=== PATIENT | female | born 1960 | race Caucasian/White ===

== ENCOUNTER 2018-11-20 14:55 | Inpatient (IN) | payer OTHER ==
[~2018-11-20] VITALS: Ht 180.3 cm; Wt 119.8 kg
--- NOTE | 2018-11-20 15:17 | NUR ---
RT PAGED FOR ABG. PT PLACED ON FULL CM SINUS TACH PT ON RA O2 SAT AT 81% LUNGS CTA SHALLOW LABORED BREATHING. PT AAOX4 GOWNED LAB AT BEDSIDE FOR BLOOD DRAW. VICENTA EMT AT BEDSIDE FOR EKG. AWAITING MD MENDEZ AND ORDERS WILL MONITOR
--- NOTE | 2018-11-20 15:17 | NUR ---
PT PRESENTS TO ED WITH C/O SOB HX OF COPD WORSENING SOB X 2 WKS PT AAOX4 RESP EVEN LABORED AND SHALLOW CRACKLES AND DIMINISHED LUNG SOUNDS THROUGHOUT PT ON RA FOR ABG BLOOD DRAW. PT GOWNED PLACED ON FULL CM. AWAITING MD MENDEZ AND ORDERS. WILL MONITOR
[2018-11-20 15:36] LABS: CARBON DIOXIDE 38.4 mmol/L (21-32); CREATININE SERUM 1.1 mg/dL (0.6-1.0); POTASSIUM SERUM 4.1 mmol/L (3.5-5.1)
[2018-11-20 15:39] LABS: BASOPHIL % 0.6 % (0-2); PLATELET COUNT 202 x10^3mcL (130-400)
[2018-11-20 15:41] LABS: BILIRUBIN TOTAL 0.9 mg/dL (0.20-1.00); RED CELL DISTRIBUTION WIDTH 17.6 % (11.5-14.5); TOTAL PROTEIN, SERUM 6.6 g/dL (6.4-8.2)
[2018-11-20 15:43] LABS: ALBUMIN 3.1 g/dL (3.4-5.0)
--- NOTE | 2018-11-20 15:43 | NUR ---
ABG IN PROGRESS
--- NOTE | 2018-11-20 15:48 | NUR ---
DR ELLSWORTH AT BEDSIDE FOR MSE
--- NOTE | 2018-11-20 16:05 | NUR ---
PLACED PATIENT ONTO BIPAP POST ABG RESULTS. SETTINGS GIVEN BY : 03/12 RATE 16 FIO2 32%. PATIENT CONFIRMED COMFORT ON MASK. HR 104 SPO2 94.
--- NOTE | 2018-11-20 16:10 | NUR ---
RT AT BEDSIDE WITH BI-PAP ORDERED BY WES ROWE.
--- NOTE | 2018-11-20 16:13 | NUR ---
RT AT BEDSIDE FOR BREATHING TX
--- NOTE | 2018-11-20 16:33 | NUR ---
BREATHING TX COMPLETED
--- NOTE | 2018-11-20 16:52 | NUR ---
PT MEDICATED PER MD ORDERS SEE EMAR. RT PAGED FOR SECOND BREATHING TX. PT ON FULL CM VSS AT THIS TIME. PT REMAINS ON BI-PAP WILL MONITOR
--- NOTE | 2018-11-20 16:55 | NUR ---
RT AT BEDSIDE FOR BREATHING TX
--- NOTE | 2018-11-20 17:48 | NUR ---
PT INTUBATED AT THIS TIME BY DR ELLSWORTH
--- NOTE | 2018-11-20 17:56 | NUR ---
PORTABLE CXR POST INTUBATION COMPLETED
--- NOTE | 2018-11-20 18:00 | NUR ---
ORDERED GIVEN TO EXTRACT ET TUBE FROM 25CM TO 23CM BY POST XRAY.
--- NOTE | 2018-11-20 18:41 | NUR ---
LAB AT BEDSIDE FOR BLOOD CULTURE BLOOD DRAW
[2018-11-20 19:12] LABS: microscopic required? YES; urine erythrocyte TRACE (NEGATIVE)
--- NOTE | 2018-11-20 19:15 | NUR ---
FENTANYL DRIP STARTED AT THIS TIME PER MD ORDERS SEE EMAR
--- NOTE | 2018-11-20 19:28 | NUR ---
REPORT GIVEN TO NBA SORENSON RESUMING CARE OF PT AT THIS TIME
--- NOTE | 2018-11-20 19:40 | NUR ---
PATIENT WENT FOR CT SCAN
--- NOTE | 2018-11-20 20:10 | NUR ---
PATIENT RETURN FROM CT SCAN , BLOOD PRESSURE IS LOW 84/55
--- NOTE | 2018-11-20 20:30 | NUR ---
POST INTUBATION BLOOS GAS WAS DONE. VENT SETTING ADJUSTED. SAME IS KATHARINE 450TV, 80% DOWN FROM 100% A/C 20. PEEP 5. SATURATION 100%
--- NOTE | 2018-11-20 20:45 | NUR ---
LEVOPHED STARTED ORDERED @ 2MCG/MIN
--- NOTE | 2018-11-20 21:46 | NUR ---
RECEIVED REPORT FROM NBA SORENSON IN ED. AWAITING PT TRANSFER TO ICU.
--- NOTE | 2018-11-20 22:00 | NUR ---
REPORT WAS GIVEN TO DAVID IN ICU. PATIENT WILL BE TRANSPORTED TO ICU # 5 AFTER CVP LINE INSERTION.
[2018-11-20 22:03] VITALS: BP 105/75
--- NOTE | 2018-11-20 22:20 | NUR ---
AT THE BEDSIDE TO PLACE CENTRAL LINE. FAMILY WAS NOT AVAILABE. MD SIGN CONSENT.
--- NOTE | 2018-11-20 23:05 | NUR ---
MD IS STILL TRYING TO PLACE CVP LINE. SATURATION DOWN TO 89% . RESPIRATORY CALL TO THE BEDSIDE.
[2018-11-21] VITALS (19 sets, daily range): BP systolic 88–115; BP diastolic 52–79
--- NOTE | 2018-11-21 | NUR ---
PATIENT GOT VERY AGITATED WHILE FAMILY WERE VISITING . DRIPOVAN DRIP RATE INCREASE TO 15 MCG, PATIENT CALM DOWN . MOVED TO ICU 5 AFTER THE NURSE WAS UPDATED.
--- NOTE | 2018-11-21 00:05 | NUR ---
POST PROCEDURE XRAY WAS DONE. MD LUNSFORD LINE USE.
--- NOTE | 2018-11-21 00:11 | NUR ---
PT BROUGHT IN BY WOOD FROM ED ACCOMPANIED BY RN AND EMT AND TRANSFERRED TO ICU BED. HOOKED UP TO INFORMATION ASSISTANT AND CONTINUOUS PULSE OX MONITORING. VS UPON ADMISSION: T 98.0, HR 86, BP 92/60(71), O2SAT 100%. PT INTUBATED AND SEDATED ON FENTANYL 1MCG/KG/HR AND PROPOFOL AT 15 MCG/KG/MIN. 7.5 ETT AT 23LL INTACT AND SECURED. PT RESPONSIVE TO PAINFUL STIMULI. PUPILS 3MM SLUGGISH. OGT IN PLACE AND SECURED TO ETT. PT ON VENT VCV-AC MODE WITH SETTINGS OF VT 450, R 18, FIO2 80%, PEEP 6. BREATHING E/U. LUNG SOUNDS DIMINIASHED BILATERALLY. S1S2 AUSCULTATED WITH NO MURMURS NOTED. LEVOPHED GTT AT 12MCG/MIN. NO DISCHARGE, REDNESS, OR SWELLING TO EENT. RIJ CVC TRIPLE LUMEN IN PLACE, WNL, DRESSING CDI. SKIN HAS REDNESS TO LOWER ABDOMINAL FOLD AND L INGUINAL FOLD. SCATTERED SCABS TO L HEARN NOTED. ABDOMEN ROUND, SOFT. NO BM AT THIS TIME. NO N/V NOTED. WALLACE CATHTER IN PLACE DRAINING VIA GRAVITY YELLOW URINE. BED IN LOW POSITION. CALL LIGHT WITHIN REACH. WILL CONTINUE TO MONITOR.
--- NOTE | 2018-11-21 00:50 | NUR ---
LEVOPHED TITRATED FROM 12MCG/MIN TO 10MCG/MIN. BP 104/69. MAP 81.
--- NOTE | 2018-11-21 01:40 | NUR ---
LEVOPHED TITRATED FROM 10MCG/MIN TO 8 MCG/MIN. BP 106/74. MAP 84.
--- NOTE | 2018-11-21 03:34 | NUR ---
PROPOFOL TITRATED DOWN TO 10MCG/KG/MIN TO ACHIEVE RSS 4.
[2018-11-21 04:50] LABS: BASOPHIL % 0 % (0-2); PLATELET COUNT 189 x10^3mcL (130-400); RED CELL DISTRIBUTION WIDTH 17.3 % (11.5-14.5)
--- NOTE | 2018-11-21 04:50 | NUR ---
COAL MINER AT BEDSIDE FOR BLOOD DRAW.
[2018-11-21 05:08] LABS: CALCIUM 8.4 mg/dL (8.5-10.1); CARBON DIOXIDE 33.4 mmol/L (21-32); CREATININE SERUM 1.3 mg/dL (0.6-1.0); MAGNESIUM 1.6 mg/dL (1.8-2.4); POTASSIUM SERUM 4.1 mmol/L (3.5-5.1)
--- NOTE | 2018-11-21 05:36 | NUR ---
TITRATED LEVOPHED FROM 8MCG/MIN TO 6MCG/MIN. BP 98/68. MAP 77.
--- NOTE | 2018-11-21 07:10 | NUR ---
GAVE REPORT TO MAINOR SORENSON. ALL QUESTIONS AND CONCERNS ADDRESSED.
--- NOTE | 2018-11-21 07:36 | NUR ---
RT KATEY PRESENT AT BEDSIDE
--- NOTE | 2018-11-21 08:00 | NUR ---
RC'D PT RESTING IN BED WITH NO APPARENT SIGNS OF DISTRESS. PT INTUBATED AND SEDATED. ON PROPOFOL 10MCG/KG/MIN AND FENTANYL 1MCG/KG. 7.5 ETT @23LL. OGT SECURED IN PLACE. RIJ CVC TRIPLE LUMEN, DRESSING CDI. EENT FREE OF DISCHARGE. RESPIRATIONS E/U. LUNGS DIM IN BASES. VENT ON VCV-AC MODE, TV 450, FIO2 80%, PEEP 6, RATE 18. O2 SAT 95%, NO RESP DISTRESS NOTED. NSR ON PROFESSOR OF LAW. NO S/S OF CP. RAC IV OUT AT THIS TIME, CATHETER INTACT. NO REDNESS/INFLAMMATION NOTED TO SITE. F/C WITH YELLOW URINE DRAINING TO GRAVITY, SECURED IN PLACE. NO APPARENT S/S OF DISTRESS AT THIS TIME. BED IN LOWEST POSITION. CALL LIGHT IN REACH. WILL CONT TO MONITOR
--- NOTE | 2018-11-21 09:00 | NUR ---
EDUCATED PT ON INJURY OF REMOVING/PULLING ON LINES IF RESTREAINTS WERE TO BE REMOVED. PT GESTURED UNDERSTANDING AND GESTURED THAT SHE WOULD NOT ATTEMPT TO REMOVE LINES/TUBES AT THIS TIME. RESTRAINTS REMOVED AT THIS TIME. WILL CONTINUE TO MONITOR CLOSELY
--- NOTE | 2018-11-21 09:40 | NUR ---
PATIENT AWAKE AND ALERT WITH MOTHER AT BEDSIDE. PATIENT WRITING NOTES ON COMMUNICATION BOARD. PATIENT ASKED HER MOTHER WHAT HAPPENED TO HER PURSE AND CAR KEYS. MOTHER STATED TO HER THAT HER CAR WAS SAFE AND ANOTHER FAMILY MEMBER HAS HER CAR KEYS. PATIENT BECAME VERY AGITATED AND GESTURED TO HER MOTHER TO LEAVE. EDUCATION PROVIDED TO PATIENT REGARDING THE NEED TO STAY CALM IN ORDER TO VENTILATE PROPER. PATIENT GESTURED AN UNDERSTANDING AND FELL BACK ASLEEP ONCE MOTHER LEFT THE UNIT.
--- NOTE | 2018-11-21 09:50 | NUR ---
HEPARIN SQ GIVEN AT THIS TIME, PT TOLERATED WELL
--- NOTE | 2018-11-21 10:05 | NUR ---
BP 76/34 (46), LEVOPHED INCREASED AT THIS TIME. WILL RECHECK BP SHORTLY
--- NOTE | 2018-11-21 12:14 | NUR ---
US JA LO CAME TO UNIT FOR US VENOUS/ARTERIAL. I EXPLAINED TO WALLY THAT PATIENT BECOMES VERY AGITATED AND IS DIFFICULT TO VENTILATE WHEN PATIENT IS AWOKEN AND WE WILL CALL WHEN PATIENT IS ABLE TO BE CALM AND COOPERATIVE.
--- NOTE | 2018-11-21 18:00 | NUR ---
PT RESTING IN BED WITH NO APPARENT S/S OF DISTRESS. INTUBATED AND SEDATED ON FENTANYL 0.75MCG/KG AND PROPOFOL 8MCG/KG. 7.5 ETT, @23 LL. RESPIRATIONS E/U. VENTILATOR ON VCV-AV MODE FOLLOWED- PEEP 6, FIO2 80%, RATE 18, TV 450. LUNGS DIM IN BASES. O2 SAT 91%, NO RESP DISTRESS NOTED. PALP PULSES, EDEMA TO ALL EXTREMITIES. OGT INTACT AND SECURED. VITAL AF INFUSING @20 WITH 50FWF Q4H. ABDOMEN OBESE AND ROUND. ACTIVE BS. NO N/V NOTED. NO ACUTE SKIN CHANGES NOTED AT THIS TIME. RIJ TRIPLE LUMEN, WITH PATENT PORTS, DRESSING CDI. PT CLEANED WITH TAYLOR WIPES PER PROTOCOL. F/C WITH SEJAL URINE DRAINING TO GRAVITY, SECURED IN PLACE. WALLACE CARE PROVIDED. BED IN LOWEST POSITION. WILL CONT TO MONITOR
--- NOTE | 2018-11-21 19:10 | NUR ---
REPORT GIVEN TO REMY SORENSON. ALL QUESTIONS AND CONCERNS ADDRESSED
--- NOTE | 2018-11-21 19:15 | NUR ---
RECIEVED REPORT FROM RN. NURSING UPDATES. POC DISCUSSED. SEE SHIFT ASSESSMENT FOR ASSESSMENT.
--- NOTE | 2018-11-21 19:45 | NUR ---
PT AGIGATED. NOTED COUGING AND TOUBLE W/ OGT. CALLED RT. RT NOTED TO TURNING UP O2 ON VENT FROM 80% TO 100%. PT W/ WHEEZES. RT INTIATED BREATHING TX. AFTER BREATHING TX NO MORE WHEEZES. PT RESTING CALMLY IN BED.
--- NOTE | 2018-11-21 20:00 | NUR ---
NOTIFIED BY RT CHANGING FI02 FROM 80% TO 100% PER PT AGITATION AND LOW O2.
--- NOTE | 2018-11-21 22:23 | NUR ---
PT BP MAP > 65 CONSISTENTLY FOR PAST HR. TITRATED LEVOPHED FROM 3-2MCG/MIN. PT TOLERATED WELL. WILL CONT TO MONITOR.
[2018-11-22] VITALS (19 sets, daily range): BP systolic 85–107; BP diastolic 46–74
--- NOTE | 2018-11-22 01:15 | NUR ---
TITRATED TUBE FEEDING FROM 20 ML TO 30 ML PER PROTOCOL.
--- NOTE | 2018-11-22 02:21 | NUR ---
PT RESTING CALMLY IN BED. NO S/S OF ACUTE DISTRESS. NO RESTRAINTS @ THIS TIME. PT AGREED TO NOT PULL ON ETT DURING DISTRESS.
--- NOTE | 2018-11-22 04:04 | NUR ---
TITRATED LEVO FROM 2MCG TO OFF PER PT TOLERATING MAP > 65. WILL CONT TO MONITOR.
[2018-11-22 04:21] LABS: BASOPHIL % 0.1 % (0-2); PLATELET COUNT 177 x10^3mcL (130-400)
[2018-11-22 04:23] LABS: BILIRUBIN DIRECT 0.23 mg/dL (0.0-0.2); BILIRUBIN TOTAL 0.6 mg/dL (0.20-1.00); CALCIUM 8.4 mg/dL (8.5-10.1); CARBON DIOXIDE 36.6 mmol/L (21-32); CREATININE SERUM 1.1 mg/dL (0.6-1.0); RED CELL DISTRIBUTION WIDTH 17.6 % (11.5-14.5)
[2018-11-22 04:25] LABS: ALBUMIN 2.6 g/dL (3.4-5.0); TOTAL PROTEIN, SERUM 5.6 g/dL (6.4-8.2)
--- NOTE | 2018-11-22 06:38 | NUR ---
PT RESTING CALMLY IN BED. NOT ACUTE CHANGES. WILL ENDORSE.
--- NOTE | 2018-11-22 07:00 | NUR ---
TITRATED PROPOFOL FROM 8 TO 10MCG/KG/MIN PER PT AGITATION. WILL CONT TO MONITOR.
--- NOTE | 2018-11-22 07:48 | NUR ---
RT PRESENT AT BEDSIDE.
--- NOTE | 2018-11-22 07:50 | NUR ---
RC'D PT RESTING IN BED WITH NO APPARENT SIGNS OF DISTRESS. PT INTUBATED AND SEDATED WITH PROPOFOL 10MCG/KG/MIN AND FENTANYL 0.75MCG/KG. 7.5 ETT INTACT AND SECURED, @23CM LL. OGT INTACT AND SECURED. ORAL CARE PROVIDED. PT NSR ON MIX CHEMIST. NO S/S OF CP. RIJ CVC, PORTS PATENT, DRESSING CDI. WEAK PULSES NOTED TO BUE/BLE, EDEMA NOTED TO BUE/BLE. CAP REFILL <3. SKIN COOL TO TOUCH. VITAL AF INFUSING @40 WITH 50FWF Q4H. PT TOLERATING WELL, NO RESIDUAL NOTED. ABDOMEN OBESE AND ROUND. ACTIVE BS. NO S/S OF N/V. F/C WITH SEJAL URINE DRAINING TO GRAVITY, SECURED IN PLACE. NO BM NOTED AT THIS TIME. ERYTHEMA NOTED TO LOWER ABDOMINAL FOLDS AND INGUINAL FOLD, INTERDRY IN PLACE. BED IN LOW POSITION. CALL LIGHT IN REACH. WILL CONT TO MONITOR.
--- NOTE | 2018-11-22 09:10 | NUR ---
SERENA RODRIGUES AND MYSELF AT BEDSIDE TO RESPOSITION PATIENT. PATIENT USING COMMUNICATION BOARD TO MAKE NEEDS KNOWN. PATIENT ASKING DATE AND TIME. PATIENT ALSO ASKING WHICH VISITORS HAVE COME TO VISIT PATIENT. I EXPLAINED TO PATIENT THAT WE HAVE LIMITED VISITATION SHE BECOMES UPSET AND IS UNABLE TO VENTILATE WHEN AWAKE. PATIENT REQUESTING THAT WE CONTACT HER FRIEND ANETA AND ASK FOR HER TO COME BEDSIDE. PATIENT UNDERSTANDS THAT WE WILL ALLOW ANETA TO COME BEDSIDE BUT SHE WILL NEED TO LIMIT COMMUNICATION. PATIENT GESTURED AN UNDERSTANDING.
--- NOTE | 2018-11-22 09:30 | NUR ---
SERENA RODRIGUES AT BEDSIDE. PATIENT'S SPO2 DECREASING TO MID 80'S. PAGED DR ROY FOR RECOMMENDATIONS FOR CHANGE IN VENT SETTINGS. AWAITING RETURN TELEPHONE CALL.
--- NOTE | 2018-11-22 10:21 | NUR ---
PER DR. KIRILL LUNSFORD TO TITRATE FIO2 AND PEEP ACCORDING TO [employer] PROTOCOL TO KEEP SATS 88-92%, AND ADDED DUONEB Q4.
--- NOTE | 2018-11-22 11:48 | NUR ---
PATIENT'S FRIEND ANETA RETURNED CALL TO UNIT. PATIENT UPDATE PROVIDED PER PATIENT REQUEST.
--- NOTE | 2018-11-22 12:38 | NUR ---
PT RESTING IN BED WITH NO APPARENT SIGNS OF DISTRESS. VITALS STABLE. WILL CONT TO MONITOR
--- NOTE | 2018-11-22 15:21 | NUR ---
Initial Nutrition Assessment Dx: COPD, CHF Exacerbation PMHx: COPD, CHF, Hypothyroidism, DVT, HLD PSHx: Hysterectomy, Tonsillectomy, Appendectomy, Cholecystectomy Labs: (11/22) Na 146H, K 4, BG 180H, BUN 30H, Cr 1.1H, H/H 13.6/42 Meds: Ativan, Propofol, Lasix, Levophed, Morphine, Protonix, Rocephin, NSIV, Solu-Medrol, Sublimaze, Zithromax, Zofran, Heparin Nutrition Support: OGT Vital AF 1.2 @ goal rate 40 mL/Hr with 50 mL FWF Q4H. Residuals: Minimal <5 mL I and O: (11/22) 2760/1000 +1760 (11/21) 1710/700 +1010. Positive fluid balance noted; weight fluctuations are expected. Ht: 71" (180 cm) Wt: 253# (115 kg) BMI: 35.4 (Obese Class II) IBW: 155# %IBW: 163% UBW: Unable to obtain AJBW: 180# (81.8 kg) Age: 58 y/o female Food Allergies: NKFA Skin: Erythema to lower abdominal folds Linus: 13 Edema: Generalized anasarca GI: No BM since admission on 11/20 Per H&P, pt. admitted with c/o not being able to breathe. Subsequently intubated in the ED. CT of the abdomen and pelvis conducted on 11/20 with finding of colonic diverticulosis without acute diverticulitis and anasarca per provider notes. Pt. remains intubated and sedated with Vital AF 1.2 running at goal rate 40 mL/Hr with 50 mL FWF Q4H during bedside visit. Pt. continues to receive hemodynamic stability medications. Sedated on propofol 10 mcg/kg/min. Tolerating TF regimen well with minimal GRV and no GI distress per RN. Problem with: No c/o N/V/D/C Problems with: Chewing: Y Swallowing: Y Current appetite: N/A Recent wt change: None reported %wt change: N/A Vitamin/Supplement use: None Special diet at home: Regular diet Physical activity: Unable d/t acute and chronic medical conditions Education: Diet education not appropriate at this time. Estimated Nutritional Needs Based on T: 36.7 C Ve: 7.51 CBW: 115 kg Energy: 1900 kcal/d (PSU 2002) Protein: 82-98 g/d (1.0-1.2 g/kg)-using AJBW 81.8 for COPD, lean body mass preservation Fluid: Per provider orders d/t anasarca Nutrition Diagnosis 1. Inadequate EN infusion r/t current TF regimen order AEB current rate meeting <75% estimated kcal and protein needs. Intervention 1. When medically able, increase TF regimen of Vital AF 1.2 @ 45 mL/Hr with FWF as recommended and ordered by provider. Regimen will provide 1296 kcal, 81 g protein, and 875 mL free water. Alongside kcal from propofol, reigmen will meet >75% estimated kcal and protein needs. Monitor/Evaluate Goal: TF intake at least 75% estimated needs Monitor: TF/TPN tolerance, Labs, GI function, weights F/U in 2-3 days as high risk (11/24-11/25)
--- NOTE | 2018-11-22 15:25 | NUR ---
PATIENT'S SISTER CAME TO UNIT TO VISIT WITH PATIENT. PATIENT WAS INFORMED THAT SISTER WAS HERE AND GESTRUED "YES" SHE MAY COME IN AND VISIT. PATIENT BEGAN TO ASK FOR WRITING CLIPBOARD AND BECAME VERY AGITATED SHE WROTE TO HER SISTER ASKING FOR HER CAR KEYS. PATIENT'S SISTER PROVIDED COMFORT AND STATED SHE WOULD GET THEM BACK FOR HER. PATIENT APPEARED CONTENT WITH HER ANSWER AND WENT BACK TO SLEEP.
--- NOTE | 2018-11-22 15:37 | NUR ---
ENTERED PATIENT'S ROOM AND FOUND THAT OGT HAD BEEN DISLODGED. PATIENT IN NO DISTRESS TUBE FEEDING HAD BEEN TURNED OFF.
--- NOTE | 2018-11-22 17:40 | NUR ---
PT RESTING IN BED WITH NO APPARENT SIGNS OF DISTRESS. PT INTUBATED AND SEDATED ON PROPOFOL 10MCG/KG AND FENTANYL 0.75MCG/KG. 7.5 ETT AC MODE- RATE 18, TV450, FIO2 50%, PEEP 10. ORAL CARE PROVIDED AT THIS TIME. PT SUCTIONED. PT ON ATOMIC PROCESS ENGINEER WITH NSR. NO S/S OF CP. RIJ CVC INTACT, PORTS PATENT, DRESSING CDI. F/C WITH SEJAL URINE DRAINING TO GRAVITY, SECURED IN PLACE. OUTPUT 300. WALLACE CARE PROVIDED AT THIS TIME. NO BM NOTED. NO ACUTE SKIN CHANGES NOTED AT THIS TIME. BED IN LOWEST POSITION. WILL CONT TO MONITOR
--- NOTE | 2018-11-22 17:49 | NUR ---
RT PRESENT AT BEDSIDE.
--- NOTE | 2018-11-22 18:26 | NUR ---
PATIENT AWOKE REQUESTING FOR WATER. EDUCATED PATIENT THAT WE ARE UNABLE TO PROVIDE HER WATER SHE IS INTUBATED. PATIENT GESTURED AN UNDERSTANDING AND WAS PROVIDED ORAL CARE IN LIEU OF WATER. PATIENT WAS CONTENT AFTER ORAL CARE PROVIDED UNTIL I EXPLAINED TO HER THAT WE NEEDED TO REINSERT THE OGT THAT WAS DISLODGED EARLIER IN THE DAY. PATIENT BECAME AGITATED AND REFUSED REINSERTION. EDUCATION PROVIDED REGARDING ADMINISTRATION OF MEDICATION/FEEDING VIA NGT/OGT AND PATIENT CONTINUED TO REFUSE.
--- NOTE | 2018-11-22 19:00 | NUR ---
RECIEVED REPORT FROM YAS CONTRERAS. POC DISCUSSED. NURSING UPDATES. SEE SHIFT ASSESSMENT FOR ASSESSMENT.
--- NOTE | 2018-11-22 19:02 | NUR ---
REPORT GIVEN TO REMY SORENSON. UPDATED ON PT STATUS AND PT CURRENT POC. ALL QUESTIONS AND CONCERNS ADDRESSED
--- NOTE | 2018-11-22 20:15 | NUR ---
PT W/ DESATURATION INTO LOW TO MID 80'S. PT BECAME AGITATED. RAISED HOB AND SUCTIONED W/ NO AVAIL. CALLED RT. BREATHING TX ADMIN AND PT CALM AND COOPERATIVE. 02 SAT 90%. WILL CONT TO MONITOR.
--- NOTE | 2018-11-22 22:00 | NUR ---
NOTIFIED PER PT TO CALL ANETA TO ASK WHEN SHE WAS COMING TO VISIT. CALLED THE NUMBER LISTED AND WAS SENT TO [facility] TO CALL BACK TO [facility] AND INFORM OF HER VISIT PLANS. WILL ENDORSE.
[2018-11-23] VITALS (18 sets, daily range): BP systolic 86–101; BP diastolic 51–64
--- NOTE | 2018-11-23 | NUR ---
PT W/ DESAT INTO THE 70% AND 80% RANGE. RT NOTIFIED. PT W/ AGITATION. CALMING MEASURES IN PLACE, SUCTIONING APPLIED, NEW O2 MONITOR LOCATION CHANGED. SATS STILL IN THE 70%-80%. FIO2 INCREASED FROM 50% TO 80% AND RT REQUESTED ABG DRAWN AFTER INTERVENTIONS. PT NEW VS HR 78, BP 91/55(67), O2 SAT 91%, RR 18. WILL CONT TO MONITOR.
--- NOTE | 2018-11-23 01:28 | NUR ---
PT W/ DESAT TO THE HIGH 70% AND LOW 80%. RT NOTIFIED AND AT BEDSIDE. FIO2 INCREASED FROM 80% TO 90%. PEEP INCREASED FROM 10 TO 12. PT TOLERATED WELL. NOT O2 SAT 91%. WILL CONT TO MONITOR.
--- NOTE | 2018-11-23 04:06 | NUR ---
PT W/ AGITATION. ADMIN PRN ATIVAN (* SEE MAR*). PT TOLERATED WELL. BP WNL. WILL CONT TO MONITOR.
--- NOTE | 2018-11-23 04:15 | NUR ---
PT W/ DESAT TO THE HIGH 70% AND LOW 80%. RT NOTIFIED AND AT BEDSIDE. PEEP INCREASED FROM 12 TO 15. PT TOLERATED WELL. O2 SAT 92%. WILL CONT TO MONITOR.
--- NOTE | 2018-11-23 04:54 | NUR ---
CHANGED LINENS, GOWN, BEDDING, CANISTERS. PT TOLERATED WELL. WILL CONT TO MONITOR.
[2018-11-23 06:02] LABS: CALCIUM 8.4 mg/dL (8.5-10.1); CARBON DIOXIDE 31.1 mmol/L (21-32); CREATININE SERUM 1.5 mg/dL (0.6-1.0); MAGNESIUM 2.3 mg/dL (1.8-2.4); PHOSPHOROUS 5.6 mg/dL (2.5-4.9); POTASSIUM SERUM 4.4 mmol/L (3.5-5.1)
--- NOTE | 2018-11-23 08:10 | NUR ---
NIBP 76/45, MAP 53. DIPRIVAN DRIP TITRATED DOWN FROM 10 TO 5 MCG/MIN AND FENTANYL DRIP TITRATED DOWN FROM 0.75 TO 0.5 MCG/KG/HR. RSS-4. LEVOPHED DRIP TO BE STARTED. WILL CONTINUE TO MONITOR.
--- NOTE | 2018-11-23 08:21 | NUR ---
NIBP 80/48, MAP 61. LEVOPHED DSTARTED AT 2 MCG/MIN. PATIENT'S 02 SAT IS 70-80%, FI02 TITRATED UP FROM 90 TO 100% FI02. RT SABINE AT BEDSIDE. DR. GREER PAGESami AT THIS TIME. WILL CONTINUE TO MONITOR.
--- NOTE | 2018-11-23 08:24 | NUR ---
COVERING PHYSICIAN DR. ROY PAGED AT THIS TIME FOR PT UPDATES PT IS DESATING 77% ON FIO2 90%. FIO2 INCREASED TO 100%, SPO2 NOW 85-90%. PRIMARY RN AND RT AT BEDSIDE.
--- NOTE | 2018-11-23 08:40 | NUR ---
DR. ROY CALLED BACK AFTER PAGE RE: PT DESATTING TO 70'S ON 100% FIO2 & BP MAP'S IN 50'S. ASKED IF PROPOFOL COULD BE SWITCHED OUT FOR VERSED D/T LOW MAP'S & DR. ROY CONSENTED. DR. ROY REQUESTED A NEW ORDER FOR CXR. WILL CONTINUE TO MONITOR.
--- NOTE | 2018-11-23 08:49 | NUR ---
STAT CXR DONE.
--- NOTE | 2018-11-23 09:15 | NUR ---
OROGASTRIC TUBE PLACED, AIR BOLUS AUSCULTATED OVER GASTRIC REGION. AWAITING KUB TO CONFIRM PLACEMENT.
--- NOTE | 2018-11-23 10:33 | NUR ---
NIBP 101/68, MAP 77. LEVOPHED DRIP TITRATED DOWN TO 1 MCG/MIN. WILL CONTINUE TO MONITOR.
--- NOTE | 2018-11-23 12:05 | NUR ---
NIBP 82/45, MAP 59. LEVOPHED DRIP TITRATED UP TO 2 MCG/MIN. WILL CONTINUE TO MONITOR.
--- NOTE | 2018-11-23 12:12 | NUR ---
NIBP 82/52, MAP 61. LEVOPHED DRIP TITRATED UP TO 3 MCG/MIN. WILL CONTINUE TO MONITOR.
--- NOTE | 2018-11-23 12:46 | NUR ---
NIBP 87/56, MAP 64. LEVOPHED DRIP TITRATED UP TO 4 MCG/MIN. WILL CONTINUE TO MONITOR.
--- NOTE | 2018-11-23 14:20 | NUR ---
DR. ROY AT BEDSIDE TO ASSESS PATIENT. UPDATES PROVIDED AND POC DISCUSSED. ORDERS RECIEVED; OKAY TO USE OGT, RESTART TUBE FEEDINGS AND CONTINUE LASIX 40 MG IVP BID. WILL FOLLOW AND CONTINUE TO MONITOR.
--- NOTE | 2018-11-23 15:19 | NUR ---
VITAL AF 1.2 TUBE FEEDINGS STARTED AT THIS TIME AT 20 ML/HR VIA OGT. FWF 50 ML Q 4 HRS. GOAL RATE IS SET FOR 40 ML/HR. WILL CONTINUE TO MONITOR.
--- NOTE | 2018-11-23 19:05 | NUR ---
RECEIVED REPORT FROM ARCELIA SORENSON. ASSUMING ALL CARE
--- NOTE | 2018-11-23 19:15 | NUR ---
RECEIVED PT LAYING IN BED. PT IS INTUBATED AND SEDATED ON FENTANYL @ 0.5 MCG/KG/HR AND VERSED @ 2 MG/HR. RSS=4. PT RESPONDS TO VERBAL STIMULI. ABLE TO FOLLOW SIMPLE COMMANDS. PUPILS WITH BRISK REACTION TO LIGHT, 3MM BILAT. GAG REFLEX PRESENT. 7.5 ETT INTACT/SECURED, 23 CM @ LL. RIJ CVC IN PLACE, SECURED, ALL PORTS PATENT. OGT INTACT/SECURED. ORAL CARE PROVIDED PER VAP PROTOCOL. BREATHING IS E/U ON VENT. VENT SETTINGS: VCV/AC MODE, RATE 18, VT 450, FIO2 100%, PEEP 15. LUNGS SOUND CLEAR TO BUL AND DIMIN TO BLL. SYMMETRICAL CHEST EXPANSION NOTED. S1/S2 HEART SOUNDS AUSCULTATED. CHEST WALL EQUAL AND SYMMETRICAL. NO S/S OF CP NOTED. HR 67, BP 96/59, MAP 70. PT ON LEVOPHED @ 4 MCG/MIN. AICD NOTED TO LEFT UPPER CHEST. PALPABLE PULSES X4 EXTREMITIES. SKIN IS WARM AND DRY. +1 PITTING EDEMA NOTED TO BUE AND +2 PITTING EDEMA NOTED TO BLE. CAP REFILL < 3 SECS. NS INFUSING @ 100 ML/HR. GENERALIZED WEAKNESS. PT ON BEDREST. NO JOINT SWELLING/DEFORMITY NOTED. PT ON VITAL AF VIA OGT @ 20 ML/HR WITH 50 CC FWF Q4H. GRV=10, REPLACED. TOLERATING WELL. FEEDING ADVANCED TO 30 ML/HR. ABD IS SOFT, ROUND, NONTENDER TO PALPATION. BOWEL SOUNDS ACTIVE X4 QUADRANTS. NO BM NOTED. WALLACE IS INTACT/SECURED, DRAINING VIA GRAVITY WITH DARK YELLOW COLORED URINE. NO LABIAL EDEMA NOTED. SCABS NOTED TO ADORE BIRCH. ERYTHEMA NOTED TO ABD FOLDS, INTERDRY IN PLACE. PT REPOSITIONED Q2H AND PRN FOR COMFORT. PT IS CALM AND COOPERATIVE AT THIS TIME. BED IN LOW POSITION. CALL LIGHT IN REACH. WILL CONT TO MONITOR
--- NOTE | 2018-11-23 20:28 | NUR ---
PT IS BREATH STACKING PER LAURA RT. FENTANYL GTT INCREASED TO 1 MCG/KG/HR. PT'S CURRENT O2 SATURATION 85%. WILL CONT TO MONITOR.
--- NOTE | 2018-11-23 20:30 | NUR ---
LAURA RT AT BEDSIDE FOR BREATHING TREATMENT
--- NOTE | 2018-11-23 20:45 | NUR ---
PEEP INCREASED TO 20 BY LAURA RODRIGUES. PT'S CURRENT O2 SATURATION 86%. WILL CONT TO MONITOR.
--- NOTE | 2018-11-23 22:07 | NUR ---
PT'S FIO2 TITRATED TO 95% BY LAURA RODRIGUES. PT'S CURRENT O2 SATURATION 86%. WILL CONT TO MONITOR.
--- NOTE | 2018-11-23 23:15 | NUR ---
GRV=5 ML, TOLERATING WELL. VITAL AF TUBE FEEDING ADVANCED TO GOAL 40 ML/HR WITH 50 CC FWF Q4H. WILL CONT TO MONITOR.
--- NOTE | 2018-11-23 23:50 | NUR ---
LAURA RT AT BEDSIDE. FIO2 DECREASED TO 90%. PT'S CURRENT O2 SATURATION 90%. WILL CONT TO MONITOR
[2018-11-24] VITALS (18 sets, daily range): BP systolic 83–100; BP diastolic 48–65
--- NOTE | 2018-11-24 01:36 | NUR ---
FIO2 TITRATED TO 85% BY LAURA RODRIGUES. PT'S CURRENT O2 SATURATION 89%. WILL CONT TO MONITOR
--- NOTE | 2018-11-24 05:05 | NUR ---
LABOR RELATIONS OFFICER AT BEDSIDE FOR AM LAB DRAW
--- NOTE | 2018-11-24 05:32 | NUR ---
FIO2 DECREASED TO 80% BY LAURA RODRIGUES. PT'S CURRENT O2 SATURATION 90%. WILL CONT TO MONITOR
[2018-11-24 05:34] LABS: BASOPHIL % 0.1 % (0-2); PLATELET COUNT 182 x10^3mcL (130-400)
[2018-11-24 05:36] LABS: RED CELL DISTRIBUTION WIDTH 17.4 % (11.5-14.5)
[2018-11-24 05:40] LABS: CALCIUM 8.5 mg/dL (8.5-10.1); CARBON DIOXIDE 29.3 mmol/L (21-32); CREATININE SERUM 1.6 mg/dL (0.6-1.0); POTASSIUM SERUM 4.7 mmol/L (3.5-5.1)
--- NOTE | 2018-11-24 07:05 | NUR ---
REPORT GIVEN TO BRICE SORENSON FOR CONTINUITY OF CARE. ALL QUESTIONS/CONCERNS ADDRESSED AT THIS TIME. ENDORSING ALL CARE
--- NOTE | 2018-11-24 07:07 | NUR ---
X-RAY TECH AT BEDSIDE
--- NOTE | 2018-11-24 08:03 | NUR ---
RECIEVED REPORT FROM YAS PARISI TO ASSUME ALL CARES. ALL QUESTIONS AND CONCERNS ADDRESSED. AM ASSESSMENT DONE. PATIENT IS SEDATED ON VERSED AND FENTANYL DRIP. RSS-4. OPENS EYES TO VERBAL STIMULI AND ABLE TO TRACK WITH EYES. ABLE TO FOLLOW SIMPLE COMMANDS AND MAKE NEEDS KNOWN BY GESTURING YES OR NO TO QUESTIONS. ETT IN PLACE AND SECURED CONNECTED TO VENT. RESPIRATIONS ARE EQUAL AND SYMMETRICAL. VENT SETTINGS: AC MODE, FI02 80%, RATE 18, VT 450 AND PEEP 20. OGT IN PLACE AND SECURED CONNECTED TO VIATL AF 1.2 TUBE FEEDINGS, TOLERATING WELL. IV FLUIDS INFUSING TO RIJ TLC WITH DRESSING C/D/I. F/C IN PLACE AND SECURED DRAINING MINIMAL YELLOW URINE VIA GRAVITY. PATIENT POSITIONED SUPINE OFFLOADED WITH PILLOWS AND HOB ELEVATED 30 DEGREES. BED TO LOWEST POSITION, SIDE RAILS UP X3, CALL LIGHT WITHIN REACH. WILL CONTINUE TO MONITOR.
--- NOTE | 2018-11-24 08:07 | NUR ---
RT BETH AT BEDSIDE AND TITRATED THE FI02 DOWN TO 70%. WINIFRED RT STUDENT AT BEDSIDE ATTEMPTING TO DRAW AN ABG AT THIS TIME. WILL CONTINUE TO MONITOR.
--- NOTE | 2018-11-24 10:13 | NUR ---
DECREASED FIO2 TO 65%.
--- NOTE | 2018-11-24 12:04 | NUR ---
DECREASED FIO2 TO 60%.
--- NOTE | 2018-11-24 14:19 | NUR ---
DECREASED PEEP TO +[address] ROY.
--- NOTE | 2018-11-24 14:20 | NUR ---
DR. ROY AT BEDSIDE TO SEE AND ASSESS PT. UPDATES PROVIDED WITH NEW ORDERS TO REDUCE NS TO 50 ML/HR. DR. ROY ALSO AWARE OF 10 SECOND RUN OF VTACH THAT OCCURED LAST NIGHT WITH NO FURTHER ORDERS.
--- NOTE | 2018-11-24 19:20 | NUR ---
REC'D REPORT FROM BRICE SORENSON TO ASSUME CARE. PT INTUBATED AND SEDATED ON FENTANYL 1 MCG/KG/HR, VERSED 2 MG/HR WITH RSS 4. PT SLEEPING BUT EASILY [place]. ABLE TO FOLLOW COMMANDS WHEN AWAKE. PERRLA NOTED. 7.5 ETT SECURED AT 23 CM LL. NO JVD NOTED. TRACHEA MIDLINE. RIJ CVC INTACT PORTS PATENT, DSG CDI. OGT INTACT AND SECURED. ETT TO VENT: AC RATE 18, TV 450, PEEP 15, FIO2 60%. CHEST RISE EQUAL AND SYMMETRICAL. LUNG SOUNDS CLEAR BUL, DIM BASES. RAILROAD POLICE IN PLACE SHOWING NSR. BP 96/57 MAP 70, HR 73. LEVOPHED GTT INFUSING @ 6 MCG/MIN. CHEST WALL STABLE. DENIES ANY CP, SYNCOPE, OR DIZZINESS. PULSES PALPABLE X4. CAP REFILL < 3 SECS. BLE 1+ PITTING EDEMA, BUE TRACE EDEMA. IVF NS INFUSING @ 50ML/HR. OGT INFUSING VITAL AF @ 40ML/HR FWF 50ML/HR Q4H. TOLERATING WELL. ABD ROUND, SOFT, NONTENDER TO TOUCH. BOWEL SOUNDS ACTIVE. DENIES ANY N/V/D. F/C INTACT AND DRAINING VIA GRAVITY YELLOW URINE. NO VAGINAL BLEEDING OR LABIAL EDEMA NOTED. ERYTHEMA TO ABD FOLDS, INTERDRY IN PLACE. GEN WEAKNESS. TURNED AND REPOSITIONED Q2H FOR PRESSURE RELIEF. PT CALM AND COOPERATIVE. ABLE TO FOLLOW COMMANDS. NO VISITORS AT THIS TIME. ALL NEEDS MET AT THIS TIME. WILL CONTINUE TO MONITOR.
--- NOTE | 2018-11-24 20:30 | NUR ---
BP 83/53 MAP 63, LEVOPHED TITRATED TO 6 MCG/MIN.
--- NOTE | 2018-11-24 21:35 | NUR ---
PTS FAMILY AT BEDSIDE, UPDATED ON STATUS, ALL QUESTIONS AND CONCERNS ADDRESSED. PT A/A/O X4. SPEECH CLEAR AND APPROPRIATE.
[2018-11-25] VITALS (17 sets, daily range): BP systolic 79–105; BP diastolic 54–74
--- NOTE | 2018-11-25 00:30 | NUR ---
PT SLEEPING BUT EASILY AROUSABLE. ABLE TO FOLLOW COMMANDS WHEN AWAKE. BP 90/56 MAP 65, LEVOPHED REMAINS AT 6 MCG/MIN. NO INDICATIONS OF PAIN AT THIS TIME.
--- NOTE | 2018-11-25 01:00 | NUR ---
GELY RT AT BEDSIDE TITRATED FIO2 TO 55%.
[2018-11-25 04:54] LABS: CALCIUM 8.4 mg/dL (8.5-10.1); CARBON DIOXIDE 30.9 mmol/L (21-32); CREATININE SERUM 1.6 mg/dL (0.6-1.0); POTASSIUM SERUM 4.2 mmol/L (3.5-5.1)
[2018-11-25 05:04] LABS: BASOPHIL % 0.1 % (0-2); PLATELET COUNT 160 x10^3mcL (130-400)
[2018-11-25 05:05] LABS: RED CELL DISTRIBUTION WIDTH 17.3 % (11.5-14.5)
--- NOTE | 2018-11-25 05:17 | NUR ---
TOTAL BED BATH PROVIDED. NO BM NOTED. F/C CARE PROVIDED. VAP CARE PROVIDED. LINENS CHANGED. REPOSITIONED TO COMFORT.
--- NOTE | 2018-11-25 05:18 | NUR ---
PT WITH RSS 4, FENTANYL TITRATED TO 0.5 MCG/KG/HR.
--- NOTE | 2018-11-25 07:30 | NUR ---
RC'D PT RESTING IN BED WITH NO APPARENT SIGNS OF DISTRESS. PT INTUBATED AND SEDATED ON FENTANYL 1MCG/KG/HR AND VERCED 1MG/HR, WITH RSS4. PT SLEEPING BUT EASILY AROUSABLE AND ABLE TO MAKE NEEDS KNOWN WHILE AWAKE. PERRLA NOTED. 7.5 ETT INTACT AND SECURED, 23CM LL. RIJ CVC INTACT, DRESSING CDI. OGT INTACT AND SECURED. EENT FREE OF DISCHARGE. ETT TO VENT AC MODE- RATE 18, PEEP 15, FIO2 55%, TV 450. RESPIRAITONS E/U. LUNGS DIMINSHED IN BASES. O2 SAT 90%, NO RESP DISTRESS NOTED. NSR ON TUBE BACKER, HR=69.S1S2 AUSCULTATED, NO MURMUR NOTED. LEVOPHED INFUSING AT 6MCG/HR. PT DENIES CP. NS INFUSING @50. GENERALIZED WEAKNESS. REPOSITION Q2H PER PROTOCOL. VITAL AF INFUSING @40 WITH 50FWF Q4H. PT TOLERATING WELL. ABDOMEN ROUND AND OBESE. ACTIVE BSX4, PT DENIES N/V. NO BM NOTED AT THIS TIME. F/C WITH YELLOW URINE DRAINING TO GRAVITY, SECURED IN PLACE. NO VAGINAL DISCHARGE OR LABIAL EDEMA NOTED. ERYTHEMA NOTED TO LOWER ABDOMINAL FOLDS AND INGUINAL FOLDS, INTERDRY IN PLACE. BED IN LOWEST POSITION. CALL LIGHT IN REACH. WILL CONT TO MONITOR
--- NOTE | 2018-11-25 07:33 | NUR ---
BP 101/65 (74), LEVOPHED TITRATED TO 5MCG/MIN. WILL CONT TO MONITOR
--- NOTE | 2018-11-25 08:01 | NUR ---
BP 102/54 (70), LEVOPHED TITRATED TO 4MCG/MIN. WILL CONT TO MONITOR
--- NOTE | 2018-11-25 08:06 | NUR ---
RT PRESENT AT BEDSIDE PROVIDING BREATHING TX AT THIS TIME.
--- NOTE | 2018-11-25 08:57 | NUR ---
PT REPOSITIONED AND MADE COMFORTABLE. ORAL CARE PROVIDED. BP CUFF READJUSTED AT THIS TIME. PT DENIES PAIN. WILL CONT TO MONITOR
--- NOTE | 2018-11-25 09:10 | NUR ---
DR ROY CALLED FOR UPDATE ON PT. UPDATED ON PT CURRENT STATUS AND SETTINGS ON VENT. ALL QUESTIONS AND CONCERNS ADDRESSED. PER DR KIRILL DR TO ORDER CARDIOLOGY CONSULT AND ECHO. AWAITING NEW ORDERS AT THIS TIME
--- NOTE | 2018-11-25 09:30 | NUR ---
DR ROY PAGED AT THIS TIME. NOTIFIED DR ROY THAT LAST BM UNKNOWN AT THIS TIME. RC'D ORDERS FOR DULCOLAX AND FLEET ENEMA DAILY PRN PER CONSTIPATION
--- NOTE | 2018-11-25 09:38 | NUR ---
PT REQUESTING TO HAVE MOTHER CALLED TO COME VISIT HER. NBA (MOM) CALLED AT THIS TIME AND MADE AWARE. NBA TO ARRIVE LATER TODAY
--- NOTE | 2018-11-25 10:24 | NUR ---
PT AGITATED AND RESTLESS AT THIS TIME. VERCED INCREASED TO 2MG/HR TO MEET RSS 4. VITALS STABLE. WILL CONT TO MONITOR
--- NOTE | 2018-11-25 10:35 | NUR ---
RIVAS FROM [facility] PRESENT AT BEDSIDE. UPDATED ON PT CURRENT STATUS AND CURRENT POC. ALL QUESTIONS AND CONCERNS ADDRESSED AT THIS TIME. PER RIVAS, AWAITING TO SPEAK TO DAUGHTER AND MOM REGARDING PT FUTURE POC.
--- NOTE | 2018-11-25 11:50 | NUR ---
MACHINE MAINTENANCE REPAIRER AT BEDSIDE FOR ECHO
--- NOTE | 2018-11-25 12:11 | NUR ---
DR ROY AND MOM NBA PRESENT AT BEDSIDE. DR ROY DISCUSSED PT CURRENT STATUS AND CURRENT POC WITH NBA. NO NEW ORDERS AT THIS TIME.
--- NOTE | 2018-11-25 12:45 | NUR ---
Follow-up Nutrition Assessment: IC08/19 [facility] FU HR Dx: COPD, CHF Exacerbation PMHx: COPD, CHF, Hypothyroidism, DVT, HLD Labs: (11/25); NA 146H, BG 258H, BUN 56H, CREAT 1.6H Meds: Ativan, Colace, Lasix, morphine, pulmicort, Zofran, heparin Diet: TF Vital AF 1.2 @ 20 ml/hr, goal 40 ml/hr, FWF 50ml Q4H PO Intake: NPO Weights in kg: (11/21) 114, (11/23) 116, (11/24) 121.1, (11/25) 120.6 Skin: erythema noted to inguinal folds and lower abd folds Linus: 14 I/Os: (11/25) 3803/3300 (503) Edema: BUE trace, BLE +3 GI: Last BM: RDN Visit (11/25): Patient is intubated and on vent. Per RN, pt. had 30-40 ml gastric residuals which were replaced. TF Vital AF 1.2 is running at goal rate of 40 ml/hr, FWF 50ml Q4H. Estimated Nutritional Needs based on CBW 115 kg Energy: 1900 kcal/d ([id number]- ventilator dependent) Protein: 82-98 g/d (1.0-1.2 g/kg) - using adjusted body weight 81.8 kg for COPD Fluid: per d/t loli, CHF Nutrition Diagnosis 1. Inadequate EN infusion related to current TF regimen order as evidenced by current rate meeting <75% estimated kcal and protein needs. Intervention 1. When medically stable increase Vital AF 1.2 @ 45 ml.hr with FWF as recommended by provider. This will provide 1296 kcal and 81g protein. Monitor/Evaluate Goal: Have pt meet at least 75% of estimated needs Monitor: TF intake/ tolerance, Labs, GI function F/U in 2-3 days as high risk 11/27-
--- NOTE | 2018-11-25 12:46 | NUR ---
1. When medically stable increase Vital AF 1.2 @ 45 ml.hr with FWF as recommended by provider. This will provide 1296 kcal and 81g protein.
--- NOTE | 2018-11-25 14:24 | NUR ---
MELVIN RODRIGUES AT BEDSIDE. PATIENT WITH SPO2 AT 95%. MELVIN RODRIGUES TITRATED FIO2 ON VENT TO 45%. WILL MONITOR PATIENT CAREFULLY.
--- NOTE | 2018-11-25 16:10 | NUR ---
DR HIGGINS AT BEDSIDE TO DISCUSS POC WITH PT.
--- NOTE | 2018-11-25 17:05 | NUR ---
PT RESTING IN BED WITH NO APPARENT SIGNS OF DISTRESS. PT INTUBATED AND SEDATED ON FENTANYL 0.5MCG/KG/HR AND VERCED 2MG/HR. PT SLEEPING BUT EASILY AROUSABLE AND ABLE TO FOLLOW COMMANDS WHEN AWAKE. DE NOTED. 7.5 ETT INTAKE AND SECURED, DRESSING CDI. RIJ CVC INTACT, PORTS PATENT, DRESSING CDI. OGT INTACT AND SECURED. EENT FREE OF DISCHARGE. ETT TO VENT- AC MODE: RATE 18, TV 450, FIO2 45%, AND PEEP 15. RESPIRATIONS E/U. O2 SAT 91%, NO RESP DISTRESS. ORAL CARE PROVIDED. NSR ON MONITOR. S1S2 AUSCULTATED. PT DENIES CP. PULSESX4, EDEMA TO BUE TRACE/BLE+3. NS INFUSING @50. GENERALIZED WEAKNESS. REPOSITIONED PER PROTOCOL FOR PRESSURE REDUCTION Q2H. VITAL AF INFUSING @40 WITH 50FWF Q4H. PT TOLERATING WELL. NO BM NOTED. F/C WITH YELLOW URINE DRAINING TO GRAVITY, SECURED IN PLACE. WALLACE CARE PROVIDED AT THIS TIME. NO ACUTE SKIN CHANGES NOTED AT THIS TIME. BED IN LOWEST POSITION. CALL LIGHT IN REACH. WILL CONT TO MONITOR
--- NOTE | 2018-11-25 19:15 | NUR ---
REPORT GIVEN TO REMY SORENSON. ALL QUESTIONS AND CONCERNS ADDRESSED
--- NOTE | 2018-11-25 19:15 | NUR ---
RECIEVED REPORT FROM YAS CONTRERAS. NURSING UPDATES. POC DISCUSSED. SEE SHIFT ASSESSMENT FOR ASSESSMENT.
--- NOTE | 2018-11-25 21:00 | NUR ---
FIO2 INCREASED TO 60% DUE TO LOW SPO2 OF 86%. SPO2 INCREASED TO 91-92%. RN AWARE. WILL MONITOR.
--- NOTE | 2018-11-25 21:06 | NUR ---
PT W/ AGITATION. CALMING MEASURES IN PLACE. DESAT ON 02 INTO THE LOW 80'S HIGH 70'S. RT NOTIFIED @ BEDSIDE. VERSED INCREASED FROM 2MG/HR TO 4MG/HR. BREATHING TX ADMIN. FIO2 INCREASED FROM 45% TO 60% TO MAINTAIN OXYGENATION, NEW O2 SAT 90%. PT TOLERATED WELL WILL CONT TO MONITOR.
--- NOTE | 2018-11-25 23:57 | NUR ---
TUBE FEEDING CHANGED, LINE PRIMED AND INFUSING. PT TOLERATED WELL. 50CC RESIDUAL. WILL CONT TO MONITOR.
[2018-11-26] VITALS (15 sets, daily range): BP systolic 69–105; BP diastolic 47–73
--- NOTE | 2018-11-26 | NUR ---
LEVO TITRATED FROM 3MCG/MIN TO 2MCG/MIN PER PT BP MAP > 65 FOR 2 HOURS. WILL CONT TO MONITOR.
[2018-11-26 04:58] LABS: BASOPHIL % 0 % (0-2); PLATELET COUNT 146 x10^3mcL (130-400); RED CELL DISTRIBUTION WIDTH 17.3 % (11.5-14.5)
--- NOTE | 2018-11-26 05:09 | NUR ---
TITRATED LEVO FROM 2MCG/MIN TO OFF PER PT BAP MAP > 65 FOR PAST 2 HOURS. WILL CONT TO MONITOR.
[2018-11-26 05:13] LABS: CALCIUM 8.7 mg/dL (8.5-10.1); CARBON DIOXIDE 34.8 mmol/L (21-32); CREATININE SERUM 1.3 mg/dL (0.6-1.0); POTASSIUM SERUM 3.7 mmol/L (3.5-5.1)
--- NOTE | 2018-11-26 06:01 | NUR ---
FIO2 REDUCED PET RT TO 45%. PT TOLERATED WELL O2 SAT 95%. WILL CONT TO MONITOR.
--- NOTE | 2018-11-26 07:15 | NUR ---
RECEIVED REPORT FROM REMY SORENSON. ALL QUESTIONS ANSWERED AND ADDRESSED. WILL RESUME CARE OF PT.
--- NOTE | 2018-11-26 07:20 | NUR ---
RECEIVED PT INTUBATED AND SEDATED ON VERSED @ 4MG/HR AND FENT @ 0.5 MCG/KG/HR. RSS = 4. ABLE TO RESPOND TO QUESTIONS BY GESTURING AND WRITING. PUPILS 3MM IN SIZE AND SLUGGISH B/E. NO FACIAL DROOP NOTED. 7.5 ETT @ 23 LL. OGT INTACT AND SECURED TO VITAL AF 1.2 INFUSING @ 40 ML/HR WITH 50CC FWF Q4H. NO S/S OF ASPIRATION. RIJ TLC CVC INTACT, X3 PORTS PATENT, DRESSING CDI. TRACHEA MIDLINE. ETT TO VENT: VCV/AC MODE = 15 PEEP, 40% FIO2, 450 VT, 18 RATE. SYMM CHEST WALL EXPANSION. RESPS ARE E/U. NO ADVENTITIOUS LUNG SOUDDS HEARD. TRANSVENOUS AICD PACER TO L UPPER CHEST NOTED. SKIN IS COOL/DRY TO TOUCH, PALE IN COLOR. +2 PITTING EDEMA TO BLE. NS INFUSING @ 50 ML/HR. ABD IS SOFT, SYMM, ROUNDED, NONTENDER. HYPOACTIVE BOWEL SOUNDS X4. NO BM AT THIS TIME. F/C INTACT AND DRAINING VIA GRAVITY. URINE IS YELLOW IN COLOR WITH GOOD OUTPUT. NO VAGINAL BLEEDING OR DISCHARGE NOTED. ERYTHEMA NOTED TO ABD FOLDS WITH INTERDRY APPLIED. SCATTERED SCARS TO BLE. HOB 30 DEGREES, X3 SIDE RAILS UP, CALL LIGHT WITHIN REACH, BED IN LOWEST POSITION.
--- NOTE | 2018-11-26 07:21 | NUR ---
REPORT GIVEN TO YAS PERRY. NURSING UPDATES. POC DISCUSSED. [place] RESUMED CARE OF PT.
--- NOTE | 2018-11-26 08:07 | NUR ---
RT AT BEDSIDE ASSESSING PT. PEEP TITRATED TO 15 TO 12. O2 SAT OF 95%. WILL CONT TO MONITOR.
--- NOTE | 2018-11-26 08:14 | NUR ---
PT SEDATED ON VENT, APPEARS COMFORTABLE IN NAD. PEEP TITRATED DOWN FROM 15 TO 12. SPO2 REMAINED STABLE AT 94% SPO2. RN NOTIFIED OF CHANGE.
--- NOTE | 2018-11-26 08:29 | NUR ---
SCREEN FOR LOW FARHAT SCALE AT RISK PRESSURE ULCER INJURY PREVENTION INTERVENTIONS IN PLACE. -TURN AND REPOSITION PATIENT Q 2H OFFLOAD LEFT AND RIGHT HIPS -ASSESS AND MONITOR SKIN CONDITION DURING POSITION CHANGE -OFFLOAD BILATERAL HEELS BY PLACING PILLOWS UNDER CALVES AT ALL TIMES, UNLESS OTHERWISE CONTRAINDICATED -PRESSURE REDISTRIBUTION SURFACE THERAPY -KEEP SKIN CLEAN AND DRY AT ALL TIMES.
--- NOTE | 2018-11-26 09:50 | NUR ---
SERENA RODRIGUES AT BEDSIDE. PEEP ON VENT TITRATED FROM 12 TO 10. SPO2 SUSTAINED AT 95%. WILL CONTINUE TO MONITOR PATIENT CLOSELY.
--- NOTE | 2018-11-26 10:35 | NUR ---
ABG DRAWN, PAO2 IN ACCEPTABLE RANGE PER ARDS NET PROTOCOL. FIO2 TITRATED TO MATCH ARDS NET PROTOCOL TO 50%. RN UPDATED. WILL CONTINUE TO MONITOR.
--- NOTE | 2018-11-26 11:15 | NUR ---
PATIENT'S MOTHER NBA TELEPHONED UNIT FOR PATIENT UPDATE.
--- NOTE | 2018-11-26 11:40 | NUR ---
FULL BED BATH GIVEN TO PT. TURNED AND REPOSITIONED. FULL BACK LOOKED AT AND NO PRESSURE/OPEN WOUNDS NOTED. PT IN NO ACUTE DISTRESS, TOLERATED WELL.
--- NOTE | 2018-11-26 11:40 | NUR ---
PATIENT'S OMAYRA CORNELL TELEPHONED FOR PATIENT UPDATE.
--- NOTE | 2018-11-26 13:51 | NUR ---
TITRATED VERSED TO 3 MG/HR TO MAINTAIN RSS OF 4.
--- NOTE | 2018-11-26 14:08 | NUR ---
DR. ROY AT BEDSIDE. ALL QUESTIONS ANSWERED AND ADDRESSED. NO NEW ORDERS AT THIS TIME.
--- NOTE | 2018-11-26 14:12 | NUR ---
DR ROY AT BEDSIDE TO ASSESS PATIENT. NURSING INFORMED DR ROY THAT MAGNESIUM AND PHOS. LABS HAVE NOT BEEN DRAWN FOR SEVERAL DAYS. DR ROY TO ENTER ORDER FOR TOMORROW.
--- NOTE | 2018-11-26 16:53 | NUR ---
PT RESTING AND COMFORTABLE. REMAINS INTUBATED AND SEDATED ON VERSED @ 3 MG/HR AND FENTANYL @ 0.5 MCG/KG/HR. 7.5 ETT @ 23 CM LL INTACT. OGT INTACT WITH VITAL AF 1.2 INFUSING @ 40 ML/HR WITH 50CC FWF. NO S/S OF ASPIRATION. ETT TO VENT: VCV/AC MODE = 10 PEEP, 50% FIO2, 18 RATE, 450 VT. SYMMETRICAL CHEST WALL EXPANSION NOTED. RESPIRATIONS EVEN AND UNLABORED. NO ACUTE SIGNS OF DISTRESS NOTED. RIJ TLC CVC INTACT, X3 PORTS PATENT, DRESSING CDI. NS INFUSING @ 50 ML/HR. F/C REMAINS IN PLACE AND DRAINING TO GRAVITY WITH LIGHT YELLOW URINE.
--- NOTE | 2018-11-26 19:06 | NUR ---
REPORT GIVEN TO MOISES SORENSON. ALL QUESTIONS AND CONCERNS ADDRESSED. WILL ENDORSE CARE OF PT.
--- NOTE | 2018-11-26 19:49 | NUR ---
REPORT RECEIVED FROM YAS PERRY. PT IS ALERT AND RESPONSIVE TO COMMANDS. PUPILS 3 MM AND BRISK BILATERALLY. PT IS BREATHING E/U ON VENT. 7.5 ETT AT 23 CM. VENT SETTINGS INCLUDE RATE: 18, TV: 450, O2: 50%, PEEP: 10. LUNG SOUNDS SHOW COURSE CRACKLES TO BUL, DIMINISHED TO BILATERAL LOWER LOBES. S1 S2 HEART SOUNDS AUSCULTATED. PACING REGULARLY. PULSES WEAK X4. CAP REFILL <3 SECONDS X4. SKIN IS COOL TO BUE, WARM TO BLE. RIJ PATENT, DRESSING CDI. NS INFUSING AT 50 ML/HR, VERSED INFUSING AT 3 MG/HR, AND FENTANYL INFUSING AT 0.5 MCG/KG/HR. ABD IS SOFT AND ROUNDED WITH ACTIVE BOWEL SOUNDS X4Q. WALLACE DRAINING VIA GRAVITY. URINE IS YELLOW WITH FAIR OUTPUT. VITAL AF INFUSING AT 40 ML/HR WITH 10 ML RESIDUAL. TOLERATING WELL. HEEL PROTECTORS IN PLACE. ALL QUESTIONS AND CONCERNS ANSWERED. WILL CONTINUE TO MONITOR.
--- NOTE | 2018-11-26 23:49 | NUR ---
PT'S BLOOD PRESSURE READING CONSISTENTLY LOW DUE TO PT HAVING ARM RAISED ABOVE HEAD. EDUCATED PT ON IMPORTANCE OF KEEPING ARM DOWN. WILL CONTINUE TO REMIND PT.
[2018-11-27] VITALS (17 sets, daily range): BP systolic 80–108; BP diastolic 50–69
[2018-11-27 04:46] LABS: BASOPHIL % 0.2 % (0-2); PLATELET COUNT 146 x10^3mcL (130-400)
--- NOTE | 2018-11-27 04:58 | NUR ---
PT PROVIDED WITH FULL BED BATH AND WALLACE CARE. ALL LINES AND SUCTION EQUIPMENT CHANGED. VAP CARE PROVIDED. PT HAD WATERY BROWN STOOL. PT TOLERATED WELL.
[2018-11-27 04:59] LABS: ALBUMIN 2.7 g/dL (3.4-5.0); BILIRUBIN TOTAL 0.47 mg/dL (0.20-1.00); CALCIUM 8.8 mg/dL (8.5-10.1); CARBON DIOXIDE 34.7 mmol/L (21-32); CREATININE SERUM 1.3 mg/dL (0.6-1.0); MAGNESIUM 1.8 mg/dL (1.8-2.4); PHOSPHOROUS 4.6 mg/dL (2.5-4.9); POTASSIUM SERUM 3.8 mmol/L (3.5-5.1); TOTAL PROTEIN, SERUM 5.3 g/dL (6.4-8.2)
--- NOTE | 2018-11-27 07:41 | NUR ---
DR. HIGGINS AT BEDSIDE, ALL UPDATES GIVEN. NO FURTHER ORDERS AT THIS TIME.
--- NOTE | 2018-11-27 09:41 | NUR ---
DR. ROY CALLED AT THIS TIME. ALL UPDATES PROVIDED. NO FURTHER ORDERS AT THIS TIME.
--- NOTE | 2018-11-27 11:55 | NUR ---
PROFESSOR OF CHEMICAL ENGINEERINGGIOVANI CALLED AT THIS TIME. AND STATED THAT SHE SPOKE WITH DR. ROY REGARDING INCREASE IN RATE FOR TUBE FEEDING TO 60 ML/HR. PER PROFESSOR OF CHEMICAL ENGINEERING, SHE WILL ADD RECOMMENDATION FOR PATIENT AT THIS TIME.
--- NOTE | 2018-11-27 12:00 | NUR ---
Follow-up Nutrition Assessment: IC08/19 [facility] FU HR Dx: COPD, CHF Exacerbation PMHx: COPD, CHF, Hypothyroidism, DVT, HLD Labs: (11/27); NA 146H, BG 237H, BUN 53H, CREAT 1.3H Meds: Colace, Lasix, morphine, Zofran, heparin Diet: TF Vital AF 1.2 @ 20 ml/hr, goal 40 ml/hr, FWF 50ml Q4H PO Intake: NPO Weights in kg: (11/24) 121.1, (11/25) 120.6, (11/27) 121 Skin: erythema noted to abd folds and lower abd folds Linus: 14 I/Os: (11/26) 2794/4000 (-1206) Edema: BUE trace, BLE +3 GI: watery stools Last BM: 11/27 RDN Visit (11/25): Patient is intubated and on vent. Per RN, pt. is tolerating TF well with no gastric residuals. TF Vital AF 1.2 is running at goal rate of 40 ml/hr, FWF 50ml Q4H. Per RN, Pt. does not have any diarrhea this morning. Estimated Nutritional Needs based on CBW 121 kg Energy: 1970 kcal/d ([id number]- ventilator dependent) Protein: 82-98 g/d (1.0-1.2 g/kg) - using adjusted body weight 81.8 kg for COPD Fluid: per d/t loli CHF Nutrition Diagnosis 1. Inadequate EN infusion related to current TF regimen order as evidenced by current rate meeting <75% estimated kcal and protein needs. Intervention 1. When medically stable increase Vital AF 1.2 @ 60 ml/hr, advance by 10 ml Q4H, with FWF as recommended by provider d/t CHF. This will provide 1730 kcal and 108g pFollow-up Nutrition Assessment: IC08/19 [facility] FU HR Dx: COPD, CHF Exacerbation PMHx: COPD, CHF, Hypothyroidism, DVT, HLD Labs: (11/27); NA 146H, BG 237H, BUN 53H, CREAT 1.3H Meds: Colace, Lasix, morphine, Zofran, heparin Diet: TF Vital AF 1.2 @ 20 ml/hr, goal 40 ml/hr, FWF 50ml Q4H PO Intake: NPO Weights in kg: (11/24) 121.1, (11/25) 120.6, (11/27) 121 Skin: erythema noted to abd folds and lower abd folds Linus: 14 I/Os: (11/26) 2794/4000 (-1206) Edema: BUE trace, BLE +3 GI: watery stools Last BM: 11/27 RDN Visit (11/25): Patient is intubated and on vent. Per RN, pt. is tolerating TF well with no gastric residuals. TF Vital AF 1.2 is running at goal rate of 40 ml/hr, FWF 50ml Q4H. Per RN, Pt. does not have any diarrhea this morning. Estimated Nutritional Needs based on CBW 121 kg Energy: 1970 kcal/d ([id number]- ventilator dependent) Protein: 82-98 g/d (1.0-1.2 g/kg) - using adjusted body weight 81.8 kg for COPD Fluid: per MD d/t loli CHF Nutrition Diagnosis 1. Inadequate EN infusion related to current TF regimen order as evidenced by current rate meeting <75% estimated kcal and protein needs. Intervention 1. When medically stable increase Vital AF 1.2 @ 60 ml/hr, advance by 10 ml Q4H, with FWF as recommended by provider d/t CHF. This will provide 1730 kcal and 108g protein. This will meet >75 % estimated calorie and protein needs. Discussed recommendations with Dr. Franklin. He agreed and said to communicate them to the RN. Spoke with YAS Newton. Monitor/Evaluate Goal: Have pt meet at least 75% of estimated needs Monitor: TF intake/ tolerance, Labs, GI function F/U in 2-3 days as high risk 11/29-
--- NOTE | 2018-11-27 16:50 | NUR ---
DR. ROY AT BEDSIDE, ALL UPDATES GIVEN. NO NEW ORDERS AT THIS TIME.
--- NOTE | 2018-11-27 19:20 | NUR ---
RECEIVED REPORT FROM BERNABE SORENSON TO ASSUME CARE. PATIENT FOUND LYUING SEMI FOWLERS IN BED AND IS ALERT TO VERBAL STIMULI. PATIENT DENIES ANY PAIN AND DOES NOT APPEAR TO BE IN ANY DISTRESS. PATIENT IS ON VENTILATOR AC RATE OF 18 VOLUME 450 PEEP 10 FIO2 50% WITH ETT 23 AT LL. LUNG SOUNDS DIMINISHED AT THE BASES BILATERALLY WITH +2 PITTING EDEMA BLE. PATIENT IS SEDATED WITH VERSED AND FENTANYL WITH A RSS OF 4. WILL CONTINUE TO MONITOR PATIENT.
--- NOTE | 2018-11-27 20:52 | NUR ---
PATIENT WAS STARTED OF LEVOPHED AT 2 MCG/MIN DUE TO BLOOD PRESSURE OF 80/47 (59)
--- NOTE | 2018-11-27 21:17 | NUR ---
BP 83/48 MAP 61, LEVOPHED TITRATED 3 MCG/MIN
[2018-11-28] VITALS (14 sets, daily range): BP systolic 79–103; BP diastolic 46–67
--- NOTE | 2018-11-28 01:53 | NUR ---
PATIENTS LEVOPHED WAS REDUCED TO 2 MCG/MIN
--- NOTE | 2018-11-28 02:51 | NUR ---
PT AWAKE AND AGITATED, WRITING BOARD PROVIDED PT WROTE "TOO MANY DAYS WITHOUT TALKING." PT TEARFUL AND AGITATED. FENTANYL SEDATION TITRATED TO 1 MCG/KG/HR.
--- NOTE | 2018-11-28 03:30 | NUR ---
PÉREZ 81/53 MAP 61, LEVOPHED TITRATED TO 3 MCG/MIN.
--- NOTE | 2018-11-28 05:47 | NUR ---
PATIENTS FENTANYL WAS TITRATED TO 2 MCG/KG/MIN AND VERSED WAS TITRATED TO 2 MG/HR.
--- NOTE | 2018-11-28 07:15 | NUR ---
REPORT RECEIVED FROM SYLVESTER RN'S. PT RESTING, SEDATED, BREATHING E/U ON VENT. PT SUPINE. BED BRAKE ENGAGED, BED IN LOWEST POSITION. LEVOPHED IS INFUSING @ 3 MCG/MIN, VERSED IS INFUSING @ 2 MG/HR, AND FENTANYL IS INFUSING @ 0.5 MCG/KG/HR, AND NS AT 50 ML/HR. PT IS EASILY AROUSED WITH VOICE, AND FOLLOWS COMMANDS APPROPRIATELY. BP 87/57 (67), HR 68 WITH SOME PACEMAKER SPIKES, SPO2 88, RR 18, T 97.2 AXILLARY. PT ON VENT: A/C VCV, PEEP 10, FIO2 50%, RATE 18, VT 450. PILLOWS ARE SUPPORTING ARMS & LEGS, ISOGEL MATTRESS ON BED. PT OFF RESTRAINTS AND COMPLIANT WITH LEAVING ETT IN PLACE. WILL CONTINUE TO ASSESS AND MONITOR.
--- NOTE | 2018-11-28 07:50 | NUR ---
LEVOPHED TITRATED UP TO 4 MCG/MIN FROM 3 MCG/MIN FOR BP 75/54 MAP 61.
--- NOTE | 2018-11-28 08:33 | NUR ---
DR. CASTRO AT BEDSIDE TO SEE AND ASSESS PT, UPDATES PROVIDED BY PRIMARY RN. AWAITING FOR FURTHER ORDERS. PLAN TO ATTEMPT CPAP TRIALS TODAY.
--- NOTE | 2018-11-28 08:37 | NUR ---
PEEP REDUCED TO [address] CASTRO AT THIS TIME. WILL CONTINUE TO MONITOR.
--- NOTE | 2018-11-28 08:37 | NUR ---
DR. CASTRO AT BEDSIDE TO ASSESS PT, UPDATES PROVIDED. DR. CASTRO REQUESTED LOWERING VERSED TO 1 MCG/HR TO SEE IF PT CAN BE EXTUBATED SOON, IVF TO BE CHANGED TO 0.45% NS D/T MOST RECENT SODIUM OF 148, & PT TO BE STARTED ON MIDODRINE TO SEE IF LEVOPHED CAN BE WEANED OFF. WILL CONTINUE TO MONITOR & CARRY OUT NEW ORDERS.
[2018-11-28 09:30] LABS: CALCIUM 8.6 mg/dL (8.5-10.1); CARBON DIOXIDE 34.3 mmol/L (21-32); CREATININE SERUM 1.3 mg/dL (0.6-1.0); POTASSIUM SERUM 3.7 mmol/L (3.5-5.1)
--- NOTE | 2018-11-28 09:31 | NUR ---
PT TURNED TO RIGHT SIDE, PT EDUCATED ON USE OF CALL LIGHT, CALL LIGHT PLACED WITHIN REACH, BED IN LOWEST POSITION. NO RESTRAINTS AT THIS TIME, PT COMMUNICATES THAT SHE WANTS ETT OUT BUT IS COMPLIANT WITH PROMPTS TO LEAVE IT IN PLACE. WILL CONTINUE TO MONITOR.
--- NOTE | 2018-11-28 09:40 | NUR ---
CALL RECEIVED FROM SISTER OF PT. UPDATES PROVIDED, QUESTIONS ADDRESSED.
--- NOTE | 2018-11-28 10:12 | NUR ---
CALL RECEIVED FROM PT'S MOTHER. UPDATES PROVIDED, QUESTIONS ANSWERED.
--- NOTE | 2018-11-28 10:13 | NUR ---
PHONE NUMBERS FOR FAMILY OF PT: NIDHI/DAUGHTER: NBA/MOTHER: SISTER:
--- NOTE | 2018-11-28 12:13 | NUR ---
DR. HIGGINS AT BEDSIDE TO SEE AND ASSESS PT, NO FURTHER ORDERS AT THIS TIME. LEVOPHED TITRATED TO 3MCG/MIN, NIBP 99/69 MAP 77. PRIMARY RN MADE AWARE.
--- NOTE | 2018-11-28 13:29 | NUR ---
NIBP 92/65 MAP 73, LEVOPHED TITRATED TO 2MCG/MIN. PRIMARY RN MADE AWARE.
--- NOTE | 2018-11-28 14:10 | NUR ---
NIBP 108/79 MAP 89, LEVOPHED DRIP TITRATED OFF AT THIS ITME. PRIMARY RN AWARE. WILL CONT TO MONITOR.
--- NOTE | 2018-11-28 15:02 | NUR ---
NIBP 74/51 MAP 58, LEVOPHED TURNED ON AT 1 MCG/MIN. WILL CONT TO MONITOR. PRIMARY RN AWARE.
--- NOTE | 2018-11-28 15:16 | NUR ---
NIBP 82/53 MAP 63, LEVOPHED CONTINUES AT 1 MCG/MIN. WILL CONT TO MONTIOR.
--- NOTE | 2018-11-28 20:28 | NUR ---
Spoke to Dr. Maribeth vanegas for Dr. Reece regarding order for Fentanyl drip. New order obtained noted and carried out. Pt made aware. Will continue to monitor.
--- NOTE | 2018-11-28 22:19 | NUR ---
PATIENT FOUND LYING IN BED IN WITH HOB ELEVATED TO 30 DEGREES. PATIENT IS ALERT AND ORIENTED AND IS ABLE TO FOLLOW COMMANDS. PATIENT IS SEDATED AND INTUBATED AND IS ON VENTILATOR. WALLACE CATHETER IS DRAINING TO GRAVITY. PATIENT HAS RIGHT IJ IN PLACE WITH NO S/S OF INFILTRATION OR BLEEDING. BED IS IN LOWEST SETTING AND PATIENT IS RESTING COMFORTABLY. SEE NURSING NOTES FOR DETAILS. PATIENT CARE AND REPORT WAS RECEIVED FROM
[2018-11-29] VITALS (17 sets, daily range): BP systolic 81–105; BP diastolic 43–72
[2018-11-29 05:36] LABS: BASOPHIL % 0.1 % (0-2); PLATELET COUNT 149 x10^3mcL (130-400)
[2018-11-29 05:38] LABS: RED CELL DISTRIBUTION WIDTH 16.7 % (11.5-14.5)
--- NOTE | 2018-11-29 05:44 | NUR ---
LEVOPHED TITRATED TO 3 MCG/KG/MIN DUE TO PT BEING HYPOTENSIVE AT 70/46 WITH MAP OF 54.
--- NOTE | 2018-11-29 06:00 | NUR ---
FENTANYL TITRATED TO 0.5 MCG/KG/HR AND VERSED TITRATED TO 1 MG/HR. RSS OF 1 AT THIS TIME
--- NOTE | 2018-11-29 06:15 | NUR ---
CENTRAL LINE DRESSING CHANGED AT THIS TIME USING STERILE TECHNIQUE, NO S/S OF ANY INFECTION, REDNESS OR DRAINAGE.
--- NOTE | 2018-11-29 06:31 | NUR ---
LEVOPHED TITRATED TO 5 MCG/MIN. NIBP 83/48 (56).
[2018-11-29 06:32] LABS: CALCIUM 8.9 mg/dL (8.5-10.1); CARBON DIOXIDE 35.4 mmol/L (21-32); CREATININE SERUM 1.2 mg/dL (0.6-1.0); POTASSIUM SERUM 4.1 mmol/L (3.5-5.1)
--- NOTE | 2018-11-29 07:06 | NUR ---
PATIENT CARE AND REPORT TRNASFERRED TO RUSTY WITH ALL QUESTIONS AND CONCERNS ANSWERED
--- NOTE | 2018-11-29 09:09 | NUR ---
PT PLACED ON CPAP BY DAVID RODRIGUES. SETTINGS: 01/11, 50%. PT TOLERATING WELL AT THIS TIME, SPO2 91%, RESPIRATORY RATE EVEN/UNLABORED. WILL CONTINUE TO ASSESS AND MONITOR.
--- NOTE | 2018-11-29 09:10 | NUR ---
PT PLACED ON CPAP 01/11 AT THIS TIME PER ORDER FROM DR CASTRO. PT REMAINS ON 50% FI02. SATURATION 90%. RR 17 TIDAL VOLUMES 300'S. PT TOLERATING AT THIS TIME. WILL CONTINUE TO MONITOR AND REDUCE PRESSURE SUPPORT TOLERATED PER DR CASTRO.
--- NOTE | 2018-11-29 10:31 | NUR ---
PRESSURE SUPPORT DROPPED TO 12. FI02 TITRATED TO 45% VOLUME 320 RR 20 SATURATION 93%. WILL MONITOR.
--- NOTE | 2018-11-29 11:52 | NUR ---
DECREASED PRESSURE SUPPORT TO 10. TOLERATING WELL. WILL MONITOR. SATURATION REMAINS 91% ON 45%.
--- NOTE | 2018-11-29 12:25 | NUR ---
PATIENT WRITING AT THIS TIME, THAT THEY ARE HAVING A HARD TIME BREATHING. PATIENT ASSESSED, AND HOB UP AT THIS TIME. O2 SATURATIONS DROPPING AT THIS TIME. RT NOTIFIED AT THIS TIME. WILL CONTINUE TO MONITOR.
--- NOTE | 2018-11-29 12:30 | NUR ---
RT AT BEDSIDE. PER RT, WILL DRAW ABGS AT THIS TIME AND CHANGE PATIENT BACK TO AC MODE. WILL CONTINUE TO MONITOR.
--- NOTE | 2018-11-29 12:30 | NUR ---
CALLED TO ICU. PT FEELS SOB. INCREASED FI02 TO 50% AND PRESSURE TO 12 WITH MILD IMPROVEMENT. PT APPEARS TO BE WORKING HARDER TO BREATHE. ABG WILL BE DRAWN.
--- NOTE | 2018-11-29 12:40 | NUR ---
PER RT, PRESSURE AT 12 AND FIO2 AT 50. PATIENT STABLE AND OXYGEN SATURATION IS STABLE, AT THIS TIME. WILL CONTINUE TO MONITOR.
--- NOTE | 2018-11-29 12:42 | NUR ---
LEVOPHED TITRATED DOWN AT THIS TIME TO 2 MCG/MIN. PATIENTS B/P: 105/72 MAP:82. WILL CONTINUE TO MONITOR.
--- NOTE | 2018-11-29 12:50 | NUR ---
DR. CASTRO PAGED AT THIS TIME, REAGRDING ABG RESULTS.
--- NOTE | 2018-11-29 12:52 | NUR ---
DR CASTRO PAGED WITH ABG RESULTS. ORDERED TO PLACE PT BACK ON AC AT THIS TIME. WILL MONITOR.
--- NOTE | 2018-11-29 12:52 | NUR ---
PT ASKED FOR HER MOTHER TO BE CALLED TO COME VISIT. RN ATTEMPTED TO CALL MOTHER TWICE WITH NO ANSWER.
--- NOTE | 2018-11-29 12:52 | NUR ---
PER DR. CASTRO, PATIENT TO BE BACK ON AC MODE. RT AWARE.
--- NOTE | 2018-11-29 13:42 | NUR ---
PT AGITATED AT THIS TIME, FENTANYL INCREASED TO 1 MCG/KG/HR & VERSED INCREASED TO 2 MG/HR. WILL CONTINUE TO MONITOR.
--- NOTE | 2018-11-29 19:15 | NUR ---
RECEIVED PT FROM YAS PANIAGUA. RECEIVED PT INTUBATED AND SEDATED INTACT TO VENT, RIJ, TLC, CDI, PORTS PATENT X3. PT ATTACHED TO FULL HOMOGENIZER OPERATOR AND CONTINUOUS PULSE OXIMETRY. TUBE FEEDING VITAL AF INFUSING. HOB ELEVATED 30 DEGREES, BED AT LOWEST SETTING, CALL LIGHT WITHIN REACH. F/C DRAINING TO GRAVITY SEJAL URINE. SEE NURSING ASSESSMENT FOR MORE DETAILS.
--- NOTE | 2018-11-29 22:15 | NUR ---
VERSED GTT TITRATED TO 3 MG/HR. PT AGITATED RSS=1, HITTING SIDE RAILS WITH HANDS AND GESTURING SHE WANTS TO SLEEP. WILL CONT TO MONITOR.
[2018-11-30] VITALS (15 sets, daily range): BP systolic 82–130; BP diastolic 51–88; Ht 180.3 cm; Wt 119.8 kg
--- NOTE | 2018-11-30 00:17 | NUR ---
RT GELY AT BEDSIDE FOR BREATHING TREATMENT.
--- NOTE | 2018-11-30 00:30 | NUR ---
LEVOPHED TITRATED TO 3 MCG/MIN. NIBP 79/50 (58).
--- NOTE | 2018-11-30 04:10 | NUR ---
RT GELY TITRATED FIO2 TO 40 %.
--- NOTE | 2018-11-30 05:00 | NUR ---
TOTAL CARE PROVIDED TO PT WITH FULL BED BATH, CHG WIPES TO RIJ. WALLACE CARE PROVIDED. PT TURNED AND BACK CLEANED, SKIN WNL TO SACRAL AREA, NO REDNESS OR DARKNESS NOTED. PT TOLERATED WELL.
--- NOTE | 2018-11-30 05:01 | NUR ---
FOUND PT WITH SMALL AMOUNT OF DARK BLOODY DRAINAGE FROM PTS VAGINAL AREA. INQUIRED WITH PT IF SHE HAS HAD HER PERIOD AND SHE REPORTS HAVING IT YEARS AGO ABOUT 4 YEARS AGO. PT KATHYA AREA CLEANED AND CHUCKS CHANGED
[2018-11-30 05:34] LABS: BASOPHIL % 0.1 % (0-2); PLATELET COUNT 141 x10^3mcL (130-400); RED CELL DISTRIBUTION WIDTH 16.6 % (11.5-14.5)
[2018-11-30 05:58] LABS: CALCIUM 8.4 mg/dL (8.5-10.1); CARBON DIOXIDE 31.8 mmol/L (21-32); CREATININE SERUM 1.1 mg/dL (0.6-1.0); POTASSIUM SERUM 4.5 mmol/L (3.5-5.1)
--- NOTE | 2018-11-30 07:00 | NUR ---
RECEIVED REPORT FROM SAMANTHA SORENSON. ALL QUESTIONS AND CONCERNS ADDRESSED. WILL RESUME CARE OF PT.
--- NOTE | 2018-11-30 07:05 | NUR ---
RECEIVED PT INTUBATED AND SEDATED ON FENT @ 1 MCG/KG/HR AND VERSED @ 2 MG/HR. RSS = 4. ABLE TO MAKE NEEDS KNOWN BY GESTURING AND WRITING. PUPILS 3MM IN SIZE AND BRISK B/E. NO FACIAL DROOP NOTED. 7.5 ETT @ 23 LL. OGT INTACT AND SECURED. RIJ TLC CVC INTACT, X3 PORTS PATENT, DRESSING CDI. ETT TO VENT: VCV/AC MODE = 7 PEEP, 40% FIO2, 18 RATE, 450 VT. RESPS ARE E/U. SYMM CHEST RISE AND FALL NOTED. PACED RHYTHM. PT HAS A TRANSVENOUS AICD TO L CHEST. +3 PITTING EDEMA TO BLE. SKIN IS WARM/DRY TO TOUCH, BUSTOS/BROWN IN COLOR TO BUE, PALE IN COLOR TO BLE. ABD IS SYMMETRICAL AND ROUNDED. NO BM AT THIS TIME. VITAL AF 1.2 INFUSING @ 60ML/HR WITH 50CC FWF Q4H. TOLERATING WELL WITH NO S/S OF ASPIRATION. F/C INTACT AND DRAINING VIA GRAVITY. URINE IS YELLOW IN COLOR WITH GOOD OUTPUT. SCANT AMOUNT OF VAGINAL BLEEDING NOTED. ISOGEL MATTRESS IN PLACE, FLEXIBOOTS IN PLACE, X3 SIDE RAILS UP, HOB 30 DEGREES, BED IN LOWEST POSITION.
--- NOTE | 2018-11-30 07:06 | NUR ---
GAVE REPORT TO ORLANDO SORENSON. UPDATES GIVEN, QUESTIONS ANSWERED. ENDORSED CARE.
--- NOTE | 2018-11-30 07:20 | NUR ---
MAP OF 70. LEVOPHED TITRATED TO 2MCG/MIN TO ACHIEVE MAP OF 65.
--- NOTE | 2018-11-30 08:33 | NUR ---
MAP OF 57. TITRATED LEVOPHED TO 3 MCG/MIN.
--- NOTE | 2018-11-30 09:30 | NUR ---
DR. CASTRO AT BEDSIDE ASSESSING PT AND TALKING ABOUT THE POC FOR PT. INFORMATION GIVEN TO PT AND PT'S SISTER ABOUT THE NEED OF TRACH PLACEMENT AND IF THE PT IS WILLING TO CONSIDER IT. DR. CASTRO ALSO INFORMED PT ABOUT CONSULTING SUPERSONIC ENGINEER ABOUT IF THE PT'S INSURANCE IS ABLE TO DO TRACH HERE AT [facility] [place] OR AT ACCEPTED FACILITY.
--- NOTE | 2018-11-30 11:21 | NUR ---
MAP OF 61. TITRATED LEVOPHED TO 4 MCG/MIN TO ACHIEVE MAP OF 65.
--- NOTE | 2018-11-30 12:12 | NUR ---
Follow-up Nutrition Assessment: IC08/19 [facility] FU HR Dx: COPD, CHF Exacerbation PMHx: COPD, CHF, Hypothyroidism, DVT, HLD Labs: (11/30); BG 410H, BUN 55H, CREAT 1.1H Meds: Colace, Lasix, morphine, Zofran, heparin Diet: TF Vital AF 1.2 @ 20 ml/hr, goal 60 ml/hr, FWF 50ml Q4H PO Intake: NPO Weights in kg: (11/27) 121, (11/28) 114, (11/29) 118.4, (11/30) 119.8 Skin: erythema noted to abd folds and lower abd folds Linus: 14 I/Os: (11/26) 2794/4000 (-1206) Edema: +1 edema R arm, BLE +2 pitting GI: tolerating TF, GRV 10ml Last BM: 11/27 RDN Visit (11/30): Patient is intubated and on vent. Per RN, pt. is tolerating TF well with 20 ml gastric residuals. TF Vital AF 1.2 is running at goal rate of 60 ml/hr, FWF 50ml Q4H. Per RN, Pt. has not had a bowel movement since 2-3 days. Pt. is on stool softener Colace. Estimated Nutritional Needs based on CBW 121 kg (weight change d/t edema) Energy: 1970 kcal/d ([id number]- ventilator dependent) Protein: 82-98 g/d (1.0-1.2 g/kg) - using adjusted body weight 81.8 kg for COPD Fluid: per d/t loli CHF Nutrition Diagnosis 1. Inadequate EN infusion related to current TF regimen order as evidenced by current rate meeting <75% estimated kcal and protein needs. (Improved- goal rate changed to 60 ml/hr). Intervention 1. Recommend continuing current tube feeding regimen Vital AF 1.2 @ 60 ml/hr, with FWF as recommended by provider d/t CHF. This will provide 1730 kcal and 108g protein. This will meet >75 % estimated calorie and protein needs. Monitor/Evaluate Goal: Have pt meet at least 75% of estimated needs Monitor: TF intake/ tolerance, Labs, GI function F/U in 2-3 days as high risk 12/02-
--- NOTE | 2018-11-30 12:48 | NUR ---
LEVOPHED TURNED OFF AT THIS TIME. MAP OF 85.
--- NOTE | 2018-11-30 13:40 | NUR ---
PT VERY ANXIOUS AND RESTLESS. TITRATED VERSED TO 2 MCG/MIN.
--- NOTE | 2018-11-30 16:29 | NUR ---
PT RESTING BUT EASILY AROUSABLE. REMAINS INTUBATED AND SEDATED ON FENT @ 1MCG/KG/HR AND VERSED @ 2 MG/HR. ETT TO VENT: VCV/AC MODE = 7 PEEP, 18 RATE, 450 VT, 40% FIO2. BREATHING E/U. SYMMETRICAL CHEST WALL EXPANSION NOTED. PT IN NO ACUTE DISTRESS AT THIS TIME. RIJ CVC INTACT, X3 PORTS PATENT, DRESSING CDI. 1/2 NS INFUSING @ 60 ML/HR. VITAL AF 1.2 INFUSING VIA OGT @ 60 ML/HR WITH 50CC FWF Q4H. TOLERATING WELL. NO S/S OF ASPIRATION. F/C INTACT AND DRAINING VIA GRAVITY. URINE IS YELLOW IN COLOR WITH GOOD OUTPUT. WILL CONT TO MONITOR.
--- NOTE | 2018-11-30 17:12 | NUR ---
RECIEVED CALL FROM [facility] DAN APPRAISAL MANAGER. PATIENT WAS ACCEPTED TO [facility], ACCEPTING DOCTOR IS: DR. ABERNATHY, ROOM ICU 2. REPORT TO BE CALLED AT . PATIENT OKAY TO BE TRANSFERRED TO [place] ANYTIME AFTER 2000 TONIGHT. NICOLE ZENDEJAS MADE AWARE AND CALLED [facility] FOR PICK-UP TIME, PATIENT IS SCHEDULED TO BE PICKED UP AT 1999. YAS PERRY MADE AWARE.
--- NOTE | 2018-11-30 18:40 | NUR ---
CALLED [facility] TO GIVE REPORT ON PT. REPORT GIVEN TO SHAW SORENSON. ALL QUESTIONS AND CONCERNS ANSWRED AND ADDRESSED. GIVEN SHAW SORENSON CALL BACK NUMBER TO [facility] [place] ICU IF ANY QUESTIONS ARE NEEDED.
--- NOTE | 2018-11-30 18:50 | NUR ---
DR. ABERNATHY NOTIFIED OF PT'S DARK BROWN VAGINAL DISCHARGE. HE ORDERED FOR A VAGINAL CULTURE. INFORMED PT OF THE DOCTOR'S ORDERS AT THE PT REFUSED AT THIS TIME.
--- NOTE | 2018-11-30 19:15 | NUR ---
GIVEN REPORT TO BRICE SORENSON. ALL QUESTIONS ANSWERED AND ADDRESSED. WILL ENDORSE CARE TO RN.
--- NOTE | 2018-11-30 19:20 | NUR ---
RECIEVED REPORT FROM YAS PERRY TO ASSUME ALL CARES. ALL QUESTIONS AND CONCERNS ADDRESSED. PATIENT IS SEDATED ON VERSED DRIP AT 2 MG/HR AND FENTANYL DRIP INFUSING AT 1 MCG/KG/HR. RSS-3. PATIENT'S EYES ARE OPEN AND ABLE TO TRACK. ABLE TO FOLLOW SIMPLE COMMANDS AND MAKE NEEDS KNOWN BY GESTURING AND WRITING ON PAPER. ETT IN PLACE AND SECURED SIZE 7.5 AND 23 CM LL. ETT TO VENT. RESPIRATIONS ARE EQUAL AND SYMMETRICAL. VENT SETTINGS: AC MODE, FI02 40%, VT 450, RATE 18 AND PEEP 7. NO SIGNS OF DISTRESS. OGT IN PLACE AND SECURED TO ETT. VITAL AF TUBE FEEDINGS INFUSING AT 20 ML/HR WITH FWF 50 ML Q 4 HRS. F/C IN PLACE AND SECURED DRAINING TO GRAVITY. PATIENT'S FAMILY AT BEDSIDE WAITING FOR PATIENT TO BE TRANSFERRED TO [facility]. [facility] ETA IS SET FOR 2000 TONIGHT. PATIENT GESTURES UNDERSTANDING OF THE TRANSFER. BED TO LOWEST POSITION, SIDE RAILS UP X3, CALL LIGHT WITHIN REACH. WILL CONTINUE TO MONITOR.
--- NOTE | 2018-11-30 20:53 | NUR ---
PATIENT DISCHARGED WITH [facility] AT THIS TIME TO [facility]. PATIENT DISCHARGE WITH VERSED AND FENTANYL DRIP INFUSING. RSS-3. PATIENT BECAME HYPOTENSIVE WITH MAP 46 AT 2014 AND LEVOPHED DRIP WAS RE-STARTED AT 2 MCG/MIN. PATIENT APPEARS IN NO DISTRESS. EYES ARE OPEN SPONATNEOUSLY AND ABLE TO TRACK. ABLE TO FOLLOW SIMPLE COMMANDS AND MAKE NEEDS KNOWN BY GESTURING. RIJ TLC REMAINED INTACT. F/C REMAINED IN PLACE. FAMILY AWARE [facility] WAS HERE TO TAKE PATIENT TO [facility] AND ALL AGREED. NO INCIDENCE DURING DISCHARGE.
== END 2018-11-30 20:53 | DRG 870 ==
LOC: ED 14:55 → IC 21:32
PROVIDERS: Emergency Medicine; Internal Medicine Pulmonary Disease; ADMIT Internal Medicine Pulmonary Disease
PROC: 5A1955Z Respiratory Ventilation, Greater than 96 Consecutive Hours (ICD-10-PCS; principal; 2018-11-20)
PROC: 0BH18EZ Insertion of Endotracheal Airway into Trachea, Via Natural or Artificial Opening Endoscopic (ICD-10-PCS; 2018-11-20)
PROC: 05HM33Z Insertion of Infusion Device into Right Internal Jugular Vein, Percutaneous Approach (ICD-10-PCS; 2018-11-20)
DX: A41.9 Sepsis, unspecified organism (principal); J96.22 Acute and chronic respiratory failure with hypercapnia; J96.01 Acute respiratory failure with hypoxia; R65.21 Severe sepsis with septic shock; J18.9 Pneumonia, unspecified organism; J44.1 Chronic obstructive pulmonary disease with (acute) exacerbation; D68.51 Activated protein C resistance; I42.9 Cardiomyopathy, unspecified; I47.2 Ventricular tachycardia; D68.59 Other primary thrombophilia; I50.42 Chronic combined systolic (congestive) and diastolic (congestive) heart failure; F15.188 Other stimulant abuse with other stimulant-induced disorder; E86.0 Dehydration; I36.1 Nonrheumatic tricuspid (valve) insufficiency; I27.20 Pulmonary hypertension, unspecified; E83.42 Hypomagnesemia; E78.5 Hyperlipidemia, unspecified; E03.9 Hypothyroidism, unspecified; Z68.35 Body mass index [BMI] 35.0-35.9, adult; Z87.891 Personal history of nicotine dependence; Z86.718 Personal history of other venous thrombosis and embolism; Z86.711 Personal history of pulmonary embolism; Z79.01 Long term (current) use of anticoagulants; Z95.810 Presence of automatic (implantable) cardiac defibrillator; Z95.9 Presence of cardiac and vascular implant and graft, unspecified
CPT/HCPCS: 36600; 83880; 85378; A4628; C9113; G0378; J0456; J0696; J1644; J1940; J2060; J2250; J2405; J2704; J2920; J2930; J3010; J3475; J3490; J7030; J7040; J7050; J7620; J7626; Q0092; Q9967